=== PATIENT | female | born 1970 | race Caucasian/White ===

== ENCOUNTER 2017-03-30 20:10 | Emergency (ER) | payer BC, OTHER ==
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
[2017-03-30 20:47] VITALS: BP 115/48; PULSE 72; TEMP 97.8; BMI 19.7
== END 2017-03-30 21:15 | disposition home or self-care (01) ==
LOC: FER 20:10
DX: S13.4XXA Sprain of ligaments of cervical spine, initial encounter (principal); V43.52XA Car driver injured in collision with other type car in traffic accident, initial encounter; Y93.89 Activity, other specified; Y92.410 Unspecified street and highway as the place of occurrence of the external cause
CPT/HCPCS: 70450-TC; 99282-25

== ENCOUNTER 2017-04-02 15:48 | Emergency (ER) | payer BC, OTHER ==
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
[2017-04-02 15:57] VITALS: BMI 19.7
[2017-04-02 16:16] VITALS: BP 117/65; PULSE 67; TEMP 97.8
== END 2017-04-02 17:36 | disposition home or self-care (01) ==
LOC: FER 15:48
DX: G43.909 Migraine, unspecified, not intractable, without status migrainosus (principal)
CPT/HCPCS: 70450-TC; 99281-25